=== PATIENT | male | born 1945 | race Caucasian/White ===

== ENCOUNTER → 2023-11-12 10:44 | Outpatient (REF) | payer MEDICARE, OTHER, SELFPAY ==
[2023-11-12 11:06] LABS: % Basophils 0.6 % (0-2); % Eosinophils 3.7 % (0-6); % Immature Granulocytes 0.2 % (0-0.5); % Monocytes 8.1 % (1.7-9.3); % Neutrophils 66.4 % (42.2-75.2); Absolute Eosinophils 0.2 10^3/uL (0-0.7); Absolute Lymphocytes 1.3 10^3/uL (1.2-3.4); Absolute Monocytes 0.5 10^3/uL (0.1-0.6); Absolute Neutrophils 4.2 10^3/uL (1.4-6.5); Hematocrit 44.4 % (39.0-52.0); Hemoglobin 15.3 g/dL (13.0-18.0); Mean Corp Hgb Conc. 34.5 g/dL (33.0-37.0); Mean Corpuscular Hgb 32.3 pg (27.0-31.0); Mean Corpuscular Volume 93.7 fL (80.0-94.0); Mean Platelet Volume 11.7 fL (7.4-10.4); Nucleated Red Blood Cells % 0 % (-); Platelet Count 143 10^3/uL (130-400); Red Blood Cell Count 4.74 10^6/uL (4.70-6.10); Red Cell Dist. Width 14.7 % (11.5-14.5); White Blood Cell Count 6.3 10^3/uL (4.8-10.8)
[2023-11-12 11:32] LABS: ALT (SGPT) 26 U/L (0-50); AST (SGOT) 27 U/L (17-59); Albumin 3.5 g/dl (3.5-5.0); Alkaline Phosphatase 65 U/L (38-126); Blood Urea Nitrogen 17 mg/dl (9-20); Calcium 9.1 mg/dl (8.4-10.2); Carbon Dioxide 27 mmol/L (22-30); Chloride 103 mmol/L (98-107); Glucose 115 mg/dl (70-99); HDL Cholesterol 49 mg/dl; LDL Cholesterol, Calculated 81 mg/dl; Sodium 139 mmol/L (135-145); Total Bilirubin 1.1 mg/dl (0.2-1.3); Total Cholesterol 146 mg/dl (50-199); Total Protein 6.4 g/dl (6.3-8.2); Triglyceride 81 mg/dl (10-149); Very Low Density Lipoprotein 16 mg/dl (0-30); eGFR > 60.00
== END ==
LOC: REG 10:44
PROVIDERS: ATTENDING PHYSICIAN Internal Medicine
DX: I49.3 Ventricular premature depolarization (principal); I25.10 Atherosclerotic heart disease of native coronary artery without angina pectoris; E78.00 Pure hypercholesterolemia, unspecified
CPT/HCPCS: 36415; 80053; 80061; 85025

== ENCOUNTER → 2023-11-18 06:55 | Day surgery (SDC) | payer MEDICARE, OTHER, SELFPAY | LOC: CATH 06:55 | PROVIDERS: ATTENDING PHYSICIAN Internal Medicine Cardiovascular Disease; FAMILY PHYSICIAN Internal Medicine | DX: I48.91 Unspecified atrial fibrillation (principal); Z79.01 Long term (current) use of anticoagulants; I25.10 Atherosclerotic heart disease of native coronary artery without angina pectoris; Z95.5 Presence of coronary angioplasty implant and graft; K21.9 Gastro-esophageal reflux disease without esophagitis; Z95.0 Presence of cardiac pacemaker; Z79.82 Long term (current) use of aspirin | CPT/HCPCS: 92960; 93005 ==

== ENCOUNTER → 2023-11-20 15:37 | Outpatient (REF) | payer MEDICARE, OTHER, SELFPAY ==
--- NOTE | 2023-11-18 11:16 | ITS.CL.CARDI ---
Analytical Strategist - Cardioversion
Cardioversion
Procedure Report:
CARDIOVERSION REPORT
DATE: November 18, 2023
Primary Care Provider: Dr. Donnie Jj
Primary business services officer: Dr. Ilya Lewis
INDICATION: Atrial fibrillation
ANTICOAGULATION: Eliquis, uninterrupted
ANESTHESIA:
Deep sedation was administered (Propofol) and monitored via the Anesthesia department.
CARDIOVERSION:
Once sedation was determined to be adequate, a biphasic shock was delivered with external pads placed in an A-P position.
Attempt # 1: 200 J Results: atrial fibrillation remains
Attempt # 2: 360 J Results: atrial fibrillation remains
Attempt # 3: 360 J + External pressure on anterior pad Results: Atrial paced
COMPLICATIONS: None
CONCLUSION: Successful cardioversion of atrial fibrillation to sinus rhythm.
RECOMMENDATION:
Maintain oral anticoagulation
After cardioversion, acutely there is slight increase in atrial and ventricular capture thresholds so I reprogrammed the device to higher atrial and ventricular outputs to ensure capture. This can be reevaluated in the office setting.
He is scheduled for an echocardiogram in approximately 1 week and thereafter an office visit with me.
Copy to:
Dr. Donnie Jj
Dr. Ilya Lewis
== END ==
LOC: DHCBS MAIN 15:37
PROVIDERS: ATTENDING PHYSICIAN Internal Medicine Cardiovascular Disease; FAMILY PHYSICIAN Internal Medicine
DX: I25.10 Atherosclerotic heart disease of native coronary artery without angina pectoris (principal)
CPT/HCPCS: 93306

== ENCOUNTER 2024-01-11 05:51 | Day surgery (SDC) | payer MEDICARE, OTHER, SELFPAY ==
[2024-01-01 12:40] VITALS: BMI 30.8
[2024-01-11] VITALS (9 sets, daily range): BP systolic 99–135; BP diastolic 65–85; BMI 29.8
[2024-01-11 08:55] LABS: ACT-LR - POC 342 Seconds (116-155)
[2024-01-11 09:16] LABS: ACT-LR - POC 366 Seconds (116-155)
[2024-01-11 09:36] LABS: ACT-LR - POC 281 Seconds (116-155)
--- NOTE | 2024-01-11 11:03 | ITS.CL.ABL ---
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
Ablation
Procedure Report:
ELECTROPHYSIOLOGIC STUDY AND POSSIBLE ABLATION
DATE: 01/11/24
Primary Care Provider: Dr Donnie Jj
Primary patient support representative: Dr Ilya Lewis
INDICATION:
Symptomatic Atrial Fibrillation.
Persistent atrial fibrillation, atrial fibrillation persistent since August 2023. He was briefly in sinus rhythm for approximately 3 to 4 days after his cardioversion in early November 2023. In sinus rhythm for the several days he noted marked
improvement in activity tolerance.
Cardiac imaging has noted markedly enlarged left atrium.
HISTORY: See H and P.
Symptomatic AF, poorly controlled with attempted medical therapy
HAS-BLED: 2
Age
Antiplatelet Therapy
CHADSVASc: 3
Age
Vascular Dz: prior [place]
PRESENTING RHYTHM: AF
HISTORY: See H and P.
Symptomatic AF, poorly controlled with attempted medical therapy.
ANTICOAGULATION: Apixaban
'TIME-OUT': called and confirmed.
SEDATION/ANESTHESIA: provided via the anesthesia department using general anesthesia.
PROCEDURE:
Ultrasound Guidance performed by [place] was utilized for femoral venous Vascular Access b/l.
A decapolar CS catheter was placed within the CS for mapping and pacing.
The intracardiac ultrasound catheter was positioned in the RA for continuous intracardiac ultrasound imaging.
Heparin bolus and infusion to target ACT at 300 -350 seconds was administered. Transseptal puncture was performed. This entailed advancing a sheath with dilator into the superior vena cava and withdrawing both (monitoring intracardiac ultrasound,
fluoroscopy and tip pressure) with the tip oriented toward the atrial septum. The fossa ovalis was engaged (indicated by sudden displacement of the sheath tip as well as tenting of the fossa seen on intracardiac ultrasound). Left atrial access
required a pass with the Brockenbrough needle extended. Left atrial catheter position was confirmed by pressure monitoring as well as fluoroscopy. The sheath was advanced over the dilator and positioned in the left atrium.
The multipolar mapping catheter was initially positioned through the transseptal sheath for high density mapping.
Geometry and voltage mapping was performed using the Medtronic Pulse Select PFA catheter and Navex 3-D electroanatomical mapping.
A 3-D map was created using Navex . A 3-D reconstructed CT image was compared to the 3-D Navex map to assist in anatomic evaluation, mapping and ablation.
The medtronic Pulse Select PFA catheter and system was used for cardiac ablation. Catheter positioning was guided and confirmed using both I.C.E. and fluoroscopy.
PV isolation approach was used to electrically isolate each PV ostia. Additional ablation lesion set was required to isolate the enlarged and highly fractionated posterior wall of the left atrium.
Once ablation was completed, cardioversion restored sinus rhythm.
Remapping demonstrated isolation of the pulmonary veins as well as the posterior wall with both entrance and exit block from the pulmonary veins and the posterior wall of the left atrium.
Programmed electrical stimulation was performed and failed to induce any sustained arrhythmias.
I.C.E. :
Pre-Ablation Post-Ablation
LVEF: 45 % 45 %
WMA: none none
Pericardial effusion: none none
COMPLICATIONS:
None
The Medtronic dual-chamber permanent pacemaker was interrogated at the beginning and then again at the end of today's procedure and there is no change in function of the ICD and lead system. Fluoroscopic imaging shows no change in the fluoroscopic
appearance of the leads and generator.
SUMMARY:
- Mapping and ablation to isolate the PVs
- Additional AF ablation set after PVI.
- 3-D Electroanatomical Mapping
- Intracardiac Ultrasound
Interrogation of the dual-chamber permanent pacemaker finds normal function of the pacemaker and lead system battery longevity is estimated at approximately 1 year.
Post ablation, I discussed today's findings and results with the patient's .
RECOMMENDATIONS:
- Observe in monitored bed.
- Maintain oral anticoagulation.
- Office visit with me in 3 months.
- Continue cardiovascular care with Dr Ilya Lewis
Copy to:
Dr Donnie Jj
Dr Ilya Lewis
--- NOTE | 2024-01-11 14:08 | W.PN.UPDATE ---
Update Note
Progress Note Update
Pt seen post PFA. Bilat groin sites with vascade closure, no ht/bleeding, non tender. OOB to chair, urinating without difficulty. 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 Resume eliquis today and continue other meds as before. Followup with Dr. Johnson
as scheduled. Home today if tele/groin sites remain stable.
== END 2024-01-11 13:10 | disposition home or self-care (01) ==
LOC: CATH 05:51
PROVIDERS: ATTENDING PHYSICIAN Internal Medicine Cardiovascular Disease; FAMILY PHYSICIAN Internal Medicine
DX: I48.19 Other persistent atrial fibrillation (principal); R53.83 Other fatigue; R06.09 Other forms of dyspnea; E78.00 Pure hypercholesterolemia, unspecified; I25.119 Atherosclerotic heart disease of native coronary artery with unspecified angina pectoris; I25.2 Old myocardial infarction; Z95.5 Presence of coronary angioplasty implant and graft; I42.9 Cardiomyopathy, unspecified; I47.20 Ventricular tachycardia, unspecified; Z95.0 Presence of cardiac pacemaker; I08.1 Rheumatic disorders of both mitral and tricuspid valves; K21.9 Gastro-esophageal reflux disease without esophagitis; E66.9 Obesity, unspecified; Z68.30 Body mass index [BMI] 30.0-30.9, adult; Z79.82 Long term (current) use of aspirin; Z79.01 Long term (current) use of anticoagulants
CPT/HCPCS: 76937; 85347; 86900; 86901; 93005; 93656; 93657; C1732; C1759; C1760; C1769; C1892; C1894

== ENCOUNTER → 2024-04-15 10:44 | Outpatient (REF) | payer MEDICARE, OTHER, SELFPAY | LOC: HWRAD 10:44 | PROVIDERS: ATTENDING PHYSICIAN Internal Medicine Critical Care Medicine; FAMILY PHYSICIAN Internal Medicine | DX: R91.8 Other nonspecific abnormal finding of lung field (principal) | CPT/HCPCS: 71250 ==

== ENCOUNTER → 2024-07-25 08:28 | Outpatient (REF) | payer MEDICARE, OTHER, SELFPAY ==
[2024-07-25 09:26] LABS: % Basophils 0.9 % (0-2); % Eosinophils 5.8 % (0-6); % Immature Granulocytes 0.4 % (0-0.5); % Lymphocytes 25.6 % (20.5-51.1); % Monocytes 9.4 % (1.7-9.3); % Neutrophils 57.9 % (42.2-75.2); Absolute Basophils 0.1 10^3/uL (0-0.2); Absolute Eosinophils 0.3 10^3/uL (0-0.7); Absolute Lymphocytes 1.4 10^3/uL (1.2-3.4); Absolute Monocytes 0.5 10^3/uL (0.1-0.6); Absolute Neutrophils 3.1 10^3/uL (1.4-6.5); Hematocrit 43.5 % (39.0-52.0); Hemoglobin 14.6 g/dL (13.0-18.0); Mean Corp Hgb Conc. 33.6 g/dL (33.0-37.0); Mean Corpuscular Hgb 31.5 pg (27.0-31.0); Mean Corpuscular Volume 93.8 fL (80.0-94.0); Mean Platelet Volume 12.5 fL (7.4-10.4); Nucleated Red Blood Cells % 0 % (-); Platelet Count 110 10^3/uL (130-400); Red Blood Cell Count 4.64 10^6/uL (4.70-6.10); Red Cell Dist. Width 13.3 % (11.5-14.5); White Blood Cell Count 5.3 10^3/uL (4.8-10.8)
[2024-07-25 10:09] LABS: ALT (SGPT) 25 U/L (0-50); AST (SGOT) 31 U/L (17-59); Alkaline Phosphatase 54 U/L (38-126); Blood Urea Nitrogen 16 mg/dl (9-20); Calcium 9.1 mg/dl (8.4-10.2); Carbon Dioxide 27 mmol/L (22-30); Chloride 104 mmol/L (98-107); Glucose 107 mg/dl (70-99); HDL Cholesterol 57 mg/dl; LDL Cholesterol, Calculated 54 mg/dl; Potassium 4.2 mmol/L (3.5-5.1); Sodium 141 mmol/L (135-145); Total Cholesterol 128 mg/dl (50-199); Total Protein 6.7 g/dl (6.3-8.2); Triglyceride 85 mg/dl (10-149); Very Low Density Lipoprotein 17 mg/dl (0-30); eGFR > 60.00
[2024-07-25 10:32] LABS: PSA, Total - Screen 0.74 ng/ml (0.0-4.0); TSH Reflex To Free T4 3.73 uIU/ml (0.47-4.68)
[2024-07-25 11:02] LABS: Glycohemoglobin (HgbA1c) 5.6 % (4.0-5.6)
== END ==
LOC: REG 08:28
PROVIDERS: ATTENDING PHYSICIAN Nurse Practitioner Family; FAMILY PHYSICIAN Internal Medicine; REFERRING PHYSICIAN Internal Medicine Cardiovascular Disease
DX: I25.10 Atherosclerotic heart disease of native coronary artery without angina pectoris (principal); E78.00 Pure hypercholesterolemia, unspecified; I48.91 Unspecified atrial fibrillation; Z12.5 Encounter for screening for malignant neoplasm of prostate; Z79.899 Other long term (current) drug therapy
CPT/HCPCS: 36415; 80053; 80061; 83036; 84443; 85025; G0103

== ENCOUNTER → 2024-08-01 10:35 | Outpatient (REF) | payer MEDICARE, OTHER, SELFPAY ==
[2024-08-01 11:42] LABS: % Basophils 0.8 % (0-2); % Eosinophils 7.7 % (0-6); % Immature Granulocytes 0.2 % (0-0.5); % Lymphocytes 20.2 % (20.5-51.1); % Monocytes 10.6 % (1.7-9.3); % Neutrophils 60.5 % (42.2-75.2); Absolute Eosinophils 0.4 10^3/uL (0-0.7); Absolute Monocytes 0.5 10^3/uL (0.1-0.6); Absolute Neutrophils 2.9 10^3/uL (1.4-6.5); Hematocrit 45.6 % (39.0-52.0); Hemoglobin 14.9 g/dL (13.0-18.0); Mean Corp Hgb Conc. 32.7 g/dL (33.0-37.0); Mean Corpuscular Hgb 31.4 pg (27.0-31.0); Mean Platelet Volume 12.5 fL (7.4-10.4); Nucleated Red Blood Cells % 0 % (-); Platelet Count 144 10^3/uL (130-400); Red Blood Cell Count 4.75 10^6/uL (4.70-6.10); Red Cell Dist. Width 13.4 % (11.5-14.5); White Blood Cell Count 4.8 10^3/uL (4.8-10.8)
== END ==
LOC: REG 10:35
PROVIDERS: ATTENDING PHYSICIAN Internal Medicine Hematology & Oncology; FAMILY PHYSICIAN Internal Medicine
DX: D69.6 Thrombocytopenia, unspecified (principal); Z79.01 Long term (current) use of anticoagulants
CPT/HCPCS: 36415; 85025

== ENCOUNTER → 2024-12-13 13:42 | Outpatient (REF) | payer MEDICARE, OTHER, SELFPAY | LOC: MRI 13:42 | PROVIDERS: ATTENDING PHYSICIAN Student in an Organized Health Care Education/Training Program; FAMILY PHYSICIAN Internal Medicine | DX: S86.012A Strain of left Achilles tendon, initial encounter (principal) | CPT/HCPCS: 73721 ==

== ENCOUNTER 2024-12-21 08:55 | Inpatient (IN) | payer MEDICARE, OTHER, SELFPAY ==
[2024-12-19] VITALS (19 sets, daily range): BP systolic 105–149; BP diastolic 54–78; BMI 30.9
[2024-12-19 06:38] LABS: Hemoglobin 14.9 g/dL (13.0-18.0); Mean Corp Hgb Conc. 33.1 g/dL (33.0-37.0); Mean Corpuscular Hgb 32.1 pg (27.0-31.0); Mean Platelet Volume 12.6 fL (7.4-10.4); Platelet Count 123 10^3/uL (130-400); Red Blood Cell Count 4.64 10^6/uL (4.70-6.10); Red Cell Dist. Width 14.5 % (11.5-14.5); White Blood Cell Count 6.1 10^3/uL (4.8-10.8)
[2024-12-19] MEDS: CELEBREX 200 MG PO (06:54)
[2024-12-19] MEDS: NORMOSOL-R/PLASMALYTE-A 1000 IV (06:54)
[2024-12-19] MEDS: TYLENOL 1000 MG PO (06:54)
[2024-12-19 06:56] LABS: ALT (SGPT) 21 U/L (0-50); AST (SGOT) 25 U/L (17-59); Albumin 3.8 g/dl (3.5-5.0); Alkaline Phosphatase 73 U/L (38-126); Blood Urea Nitrogen 17 mg/dl (9-20); Calcium 9.3 mg/dl (8.4-10.2); Carbon Dioxide 26 mmol/L (22-30); Chloride 106 mmol/L (98-107); Estimated Creatinine Clearance 93 ml/min; Glucose 111 mg/dl (70-99); Potassium 4.3 mmol/L (3.5-5.1); Sodium 140 mmol/L (135-145); Total Bilirubin 1.1 mg/dl (0.2-1.3); Total Protein 6.8 g/dl (6.3-8.2); eGFR > 60.00
--- NOTE | 2024-12-19 08:34 | W.PN.SURGUPD ---
Surgical Update
Surgical Update
79 yo M s/p left Achilles tendon repair. Post-op admission for pain control and ambulatory dysfunctional
-Splint to remain C/D/I
-Multimodal analgesia
-Ancef while admitted
-Can resume eliquis POD#1
-NWB to LLE, PT/OT to stard POD#0 or POD#1
-Follow up at [facility] in 2 weeks
--- NOTE | 2024-12-19 10:38 | HPS.HSE ---
Family Physician
-
Family Physician: NO INTERVIEW UNKNOWN
Chief Complaint
-
post-op care
History of Present Illness
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 He was assessed on 12/09 at podiatry/orthopedic office for 10 day onset of L heel pain, which was gradual and
worsening over time. Conservative pain control, stretching and shoe changes provided very little relief. Decision was made to proceed with tendon repair today. Patient seen post-op, no immediate complications. Patient only reports L heel pain.
Denies CP, SOB, Abd pain or other complaints. Confirms distant history of morphine allergy (morphine infusion related to prior R Achilles surgery greater than 20 years ago).
Medical History
Past Medical History
Past Medical History: Reports Other (hx of PAF, mild MR, GERD, hx of CAD (hx of PCI), HLD, OA, Arthritis)
Past Surgical History: Reports Cardiac (pacemaker 2019, angioplasty 2015), Cholecystectomy, Orthopedic and Tonsilectomy
Social History
Tobacco: Non-smoker
Alcohol: None
Drug: None
Personal:
Living: With Family
Employment: Retired
Family History
Family History: Not pertinent
Allergies / Home Medications
Allergies reflects when Allergies were last updated in [facility].
Home Medications with original date entered in [facility]
Allergy/Medication List:
Allergies
Allergy/AdvReac Type Severity Reaction Status Date / Time
morphine AdvReac chest Verified 12/19/24 06:20
pain,
muscle pain
Home Medications
lisinopril 5 mg tablet 5 mg PO HS 01/12/18
omeprazole 20 mg capsule,delayed release 20 mg PO DAILY 01/12/18
carvedilol 3.125 mg tablet 3.125 mg PO BID 30 days ##60 01/17/18
apixaban 5 mg tablet (Eliquis) 5 mg PO BID ##0 04/01/21
aspirin 81 mg tablet,delayed release (Adult Aspirin Regimen) 81 mg PO HS 04/01/21
ezetimibe 10 mg tablet (Zetia) 10 mg PO HS 11/18/23
rosuvastatin 10 mg tablet (Crestor) 10 mg PO MOWEFR 11/18/23
Review of Systems
-
A 12 point ROS was completed and negative except as noted: Yes
Physical Exam
Vital Signs
Vital Signs
Temp Pulse Resp BP Pulse Ox
97.1 F 73 21 117/72 98
12/19/24 09:40 12/19/24 10:16 12/19/24 10:16 12/19/24 10:16 12/19/24 10:16
Physical Exam
General: Well Developed, Well Nourished and No Apparent Distress
HEENT: NormoCephalic and Anicteric
Respiratory: Clear; No Wheezes or Rales
Cardiac: S1/S2 and Regular Rhythm
GI: Soft, Non Tender and Non Distended
Musculoskeletal: Edema, Left Lower Extremity (post-op edema, splint in place) and Other
Neuro: AO x 3
Hematologic/Lymphatic: No Lymphadenopathy
Psych: Calm
Laboratory Results
-
12/19/24 06:28
12/19/24 06:28
Laboratory Results
Total Bilirubin 1.1 mg/dl (0.2-1.3) 12/19/24 06:28
AST 25 U/L (17-59) 12/19/24 06:28
ALT 21 U/L (0-50) 12/19/24 06:28
Alkaline Phosphatase 73 U/L (38-126) 12/19/24 06:28
Data Reviewed
-
Lab Data: Labs Reviewed by me
Impression/Plan
-
Assessment:
L Achilles tendon rupture
- s/p tendon repair 12/19/24 (Podiatry. Dr. Scales)
- Ancef x 24 hours
- pain control
- NWB to LLE, PT/OT to start this afternoon
- d/w Dr. Scales - ok for SC heparin. Resume Eliquis in AM
- follow Podiatry recs
hx of Parox A Fib
Hx of CAD s/p PCI
Mild MR
- hold Eliquis; resume in AM
- resume ASA tomorrow
- continue Coreg/Lisinopril
GERD
- PPI
HLD
- statin/Zetia
OA
Arthritis
- pain control
- PT/OT
DVT ppx: SC Heparin x 1 tonight, then Eliquis tomorrow
Code: Full
--- NOTE | 2024-12-19 11:49 | PTCARENOTE ---
Pt admitted to [facility] s/p achilles tendon repair surgery. AV paced on monitor, VSS, pt denies pain. Assessment as documented, pt oriented to room, call pop within reach.
[2024-12-19] MEDS: TYLENOL 650 MG PO (20:18)
[2024-12-19] MEDS: COREG 3.125 MG PO (20:19)
[2024-12-19] MEDS: ZETIA 10 MG PO (22:58)
[2024-12-19] MEDS: ZESTRIL 5 MG PO (22:58)
[2024-12-20] VITALS (8 sets, daily range): BP systolic 98–123; BP diastolic 57–74; PULSE 76
[2024-12-20 06:44] LABS: Hematocrit 40.9 % (39.0-52.0); Hemoglobin 13.7 g/dL (13.0-18.0); Mean Corp Hgb Conc. 33.5 g/dL (33.0-37.0); Mean Corpuscular Hgb 32.1 pg (27.0-31.0); Mean Corpuscular Volume 95.8 fL (80.0-94.0); Mean Platelet Volume 12.6 fL (7.4-10.4); Platelet Count 122 10^3/uL (130-400); Red Blood Cell Count 4.27 10^6/uL (4.70-6.10); Red Cell Dist. Width 14.4 % (11.5-14.5); White Blood Cell Count 8.6 10^3/uL (4.8-10.8)
--- NOTE | 2024-12-20 07:20 | W.PN.SURGUPD ---
Surgical Update
Surgical Update
79 yo M s/p left Achilles tendon repair 12/19/2024. Recovering well
-Patient seen and evaluated at bedside. Pain is well controlled
-Splint to remain C/D/I
-NWB to LLE
-Can be discharged following PT evaluation today
-Follow up at [facility] in 2 weeks
[2024-12-20 07:35] LABS: Blood Urea Nitrogen 13 mg/dl (9-20); Calcium 9.1 mg/dl (8.4-10.2); Carbon Dioxide 26 mmol/L (22-30); Chloride 105 mmol/L (98-107); Estimated Creatinine Clearance 106 ml/min; Glucose 117 mg/dl (70-99); Sodium 137 mmol/L (135-145); eGFR > 60.00
[2024-12-20] MEDS: COREG PO ×2 (08:30→20:03)
[2024-12-20] MEDS: PROTONIX 40 MG PO (08:59)
[2024-12-20] MEDS: ELIQUIS 5 MG PO ×2 (08:59→20:04)
[2024-12-20] MEDS: TYLENOL 650 MG PO ×2 (09:00→20:10)
--- NOTE | 2024-12-20 11:09 | CM ---
Initial assessment completed
Pt lives with his in a 2 story home; 2 steps to enter, 15 steps to bedroom, + powder room
Independent, retired, drives
DME - rolling walker, raised toilet seat, toilet rails, single point cane
SNF/HH - denies past hx
PCP - Donnie Jj
Pharm - [facility]
Seen by PT/OT - recs acute rehab. Pt requesting [facility]. Will send referral in [facility].
Spoke with Hadley at [facility] - will review
Plan - anticipate acute rehab when medically stable
--- NOTE | 2024-12-20 11:36 | W.PN.HOSP.TC ---
Today's Communication/Plan
-
Consult PMR; placement pending
Assessment / Plan
Assessment / Plan
Assessment:
L Achilles tendon rupture
- s/p tendon repair 12/19/24 (Podiatry. Dr. Scales)
- pain control
- NWB to LLE
- PT/OT - Acute rehab recommended
- follow Podiatry recs
Orthostasis, transient on 12/20 with PT
- will monitor
hx of Parox A Fib
Hx of CAD s/p PCI
Mild MR
- continue Eliquis
- continue ASA
- continue Coreg/Lisinopril
GERD
- PPI
HLD
- statin/Zetia
OA
Arthritis
- pain control
- PT/OT
DVT ppx: Eliquis
Code: Full
Anticipated Discharge: 24 - 48 hours
Subjective/Interval History
-
Date of Service: December 20, 2024
transiently orthostatic this AM, improved after resting
reports mild pain; only needed Tylenol prn
No other complaints
Objective Data
-
Labs:
Laboratory Results
12/20/24
06:16
WBC 8.6
Hgb 13.7
Hct 40.9
Plt Count 122 L
Sodium 137
Potassium 4.0
Chloride 105
Carbon Dioxide 26
BUN 13
Creatinine 0.7
Glucose 117 H
Calcium 9.1
Vital Signs:
Vital Signs
Temp Pulse Resp BP Pulse Ox
97.2 F 73 16 114/69 97
12/20/24 11:23 12/20/24 11:23 12/20/24 11:23 12/20/24 11:23 12/20/24 11:23
I&O
12/19/24 12/20/24 12/21/24
06:59 06:59 06:59
Intake Total 2490 / 2490
Output Total 800 / 800
Balance 1690 / 169
Physical Exam
-
General: No Apparent Distress
HEENT: Normocephalic and Atraumatic
Respiratory: Negative Wheezes
Cardiac: Regular Rhythm and S1/S2
GI: Soft and Nontender
Genito-urinary: No Costovertebral Tender
Musculoskeletal: Edema, Left Upper Extrem (post-op edema, splint in place)
Neuro: AO x 3
Hematologic / Lymphatic: No Lymphadenopathy
Psych: Calm
Data Reviewed
-
Total Time Spent with Patient (in minutes): 41
Labs: Labs Reviewed by me
--- NOTE | 2024-12-20 16:21 | W.PN.UPDATE ---
Update Note
Progress Note Update
I reviewed his telemetry, his HR has never been < 60 bpm, the base rate of his pacer. There has been no asystole and there has been no non-capture beats.
He likely has been somewhat orthostatic and I agree with volume repletion as well as holding Coreg temporarily. May also need to hold lisinopril temporarily.
As BP improves would then add back coreg and lisinopril (if held)
I reviewed all this with Dr Prado.
[2024-12-20] MEDS: ZESTRIL 5 MG PO (22:15)
[2024-12-20] MEDS: ASPIR LOW (ENTERIC COATED) 81 MG PO (22:15)
[2024-12-20] MEDS: ZETIA 10 MG PO (22:15)
[2024-12-20] MEDS: MELATONIN 5 MG PO (22:16)
[2024-12-21] VITALS (7 sets, daily range): BP systolic 105–137; BP diastolic 65–83
[2024-12-21] MEDS: COREG PO (08:40)
--- NOTE | 2024-12-21 09:00 | CON.MD ---
Documented by User: Cathleen Monterroso PA-C 12/21/24 13:03
Consultation - Medical
-
Referring Provider:�Kanchan Corbett
Chief Complaint:�Ambulatory dysfunction, left Achilles tendon rupture status post repair
�
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
evaluation of gradual worsening left heel pain of 10 days after attempting to push his disabled car. He felt a tingling in his heel followed by a snap. After obtaining very little relief with conservative pain control, stretching and shoe changes
the decision was made to proceed with tendon repair. He had a similar injury to his right heel 20 years ago and had undergone achilles tendon repair. At that time, he wore a boot and was able to return to work without outpatient therapy. On
12/19/2024, he underwent left achilles tendon repair .Patient seen post-op, no immediate complications. Patient only reports L heel pain. Denies CP, SOB, Abd pain or other complaints.
Past Medical History:�PAF, mild MR, GERD, history of CAD, status post PCI, HLD, OA, pacemaker 2019,
Procedure History:�Right Achilles repair 20 years ago, angioplasty 2015
Family History:�not pertinent
�
Social History:�
Functional Level Premorbidly:�Independent with all activities�
Functional Level Currently:�Bed mobility�supervision, transfers�min assist, uses knee scooter to ambulate due to no weightbearing, eating, grooming�set up, toileting�mod assist, upper extremity dressing-set up, lower extremity self-care�min assist,
�
Tobacco:�Denies�
Alcohol:�Denies�
Drug use:�Denies�
�
Lives with:�Spouse
24-hour assistance available:�
Number of floors:�Multilevel
# steps to enter:�2
# steps to second floor: 18 steps to bedroom
Potential First floor set up:�
Driving:�Yes
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
�
�
Allergies:�
Allergy/AdvReac Type Severity Reaction Status Date / Time
morphine AdvReac chest Verified 12/19/24 06:20
pain,
muscle pain
�
Review of Systems:�
Constitutional: (x) Normal _
Eye: (x) Normal _
Ear/Nose/Throat: (x) Normal _
Respiratory: (x) Normal _
Cardiovascular: (x) Normal _
Gastrointestinal: (x) Normal _
Genitourinary: (x) Normal _
Musculoskeletal: (x) abNormal _left heel
Integumentary: (x) Normal _
Neurologic: (x) Normal _
Psychiatric: (x) Normal _
Endocrine: (x) Normal _
Hematologic/Lymphatic: (x) Normal _
Allergic/Immunologic: (x) Normal _
�
Medications:�
Active Current Visit Medication List
Category Date Time Status
Acetaminophen [Tylenol] Med 12/19/24 10:21 Active
650 mg PO Q4HPRN PRN
Apixaban [Eliquis] Med 12/20/24 08:15 Active
5 mg PO BID
Aspirin Low Dose EC [Aspir Low (Enteric Coated)] Med 12/20/24 22:00 Active
81 mg PO HS
Bisacodyl [Dulcolax] Med 12/19/24 10:21 Active
10 mg RECTAL [id number] PRN
Carvedilol [Coreg] Med 12/19/24 20:00 Hold
3.125 mg PO BID
Docusate W/Senna [Senokot-S] Med 12/19/24 10:21 Active
1 tablet PO BIDPRN PRN
Ezetimibe [Zetia] Med 12/19/24 22:00 Active
10 mg PO HS
Lisinopril [Zestril] Med 12/19/24 22:00 Hold
5 mg PO HS
Ondansetron Injectable [Zofran] Med 12/19/24 10:21 Active
4 mg IV Q6HPRN PRN
Oxycodone [Roxicodone] Med 12/19/24 10:21 Active
5 mg PO Q4HPRN PRN
Pantoprazole [Protonix] Med 12/20/24 08:00 Active
40 mg PO DAILY
Polyethylene Glycol Powder [Miralax] Med 12/19/24 10:21 Active
17 grams PO DAILYPRN PRN
�
Vitals:�
Temp Pulse Resp BP Pulse Ox
97.3 F 71 16 124/80 94
12/21/24 07:25 12/21/24 07:25 12/21/24 07:25 12/21/24 07:25 12/21/24 07:25
Height 6 ft 1 in
Actual Weight 106.141 kg
Body Mass Index (BMI) 30.9
�
Physical Exam:�
General Appearance/Observation: Well-developed, well-nourished individual in no apparent distress.�
Pain/Comfort Assessment: left heel-discomfort
Mood/Affect: Appropriate, pleasant
�
Integumentary/Operative Site:�Left leg/foot with splint an mercedes wrap
�� Pressure Ulcer Evaluation: absent over heels.�
��
�� Other Type of Wound: absent�
��
�
Eyes: Conjunctiva/Lids: normal���� Pupils: pupils equal round
Ears/Nose/Throat: oral mucosa moist,� throat clear.������������ Lips/Teeth/Gums: normal�
Neck: No muscle spasm or tenderness�
Cardiovascular: Heart: regular, no murmur�
Pulses: dorsalis pedis 2+ bilaterally�
Respiratory: Respiratory Effort/Chest Expansion: normal������� Auscultation: Clear to auscultation bilaterally�
Gastrointestinal: abdomen not tender, no distension, normal abdominal bowel sounds
Genitourinary: No Dye�
Extremities:�Edema: None�Cyanosis: None�Trophic�changes: some atrophy left distal leg due to prior surgery
�
Neurology Exam:
Orientation: Alert, Oriented to self, Time, Place�
Memory: Intact for immediate medical concerns
Comprehension: Intact
Two step command: Intact
Cranial Nerves:
�� CNII:�Pupillary light reflex: Intact����Visual Field: NT
�� CN III, IV, : Extraocular muscles: Intact�
�� CN VII:�Facial movement: Symmetric
�� CN VIII:�Hearing: Normal
�� CN IX/X:�Speech & swallow: Normal,�Position of Uvula: Midline
�� CN XI:�Shoulder shrug: Symmetric
��
Sensory:
�� Light touch: Intact in bilateral upper and right lower extremities
��
�
Reflexes:
��
�� Patellar: 2+ bilaterally
�� Achilles: absent- right, deferred-left
�� Babinski: Down going -right, left NT
�� Liliana: Negative bilaterally�
Cerebellar: Dysmetria/Ataxia: NT
Musculoskeletal:
Motor: (Manual muscle scale 0-5)�
Muscle SA EF WE EE FF FA HF KE DF EHL PF
Right� 5 5 5 5 5 5 5 5 4
Left 5 5 5 5 5 5 NT *3+ NT
�* limited by mercedes wrap
Tone: Normal in all extremities�
Range of Motion: Passively within normal limits , LLE NT
�
Lab Results
Labs
WBC 8.6 10^3/uL (4.8-10.8) 12/20/24 06:16
RBC 4.27 10^6/uL (4.70-6.10) L 12/20/24 06:16
Hgb 13.7 g/dL (13.0-18.0) 12/20/24 06:16
Hct 40.9 % (39.0-52.0) 12/20/24 06:16
MCV 95.8 fL (80.0-94.0) H 12/20/24 06:16
MCH 32.1 pg (27.0-31.0) H 12/20/24 06:16
MCHC 33.5 g/dL (33.0-37.0) 12/20/24 06:16
RDW 14.4 % (11.5-14.5) 12/20/24 06:16
Plt Count 122 10^3/uL (130-400) L 12/20/24 06:16
MPV 12.6 fL (7.4-10.4) H 12/20/24 06:16
Sodium 137 mmol/L (135-145) 12/20/24 06:16
Potassium 4.0 mmol/L (3.5-5.1) 12/20/24 06:16
Chloride 105 mmol/L (98-107) 12/20/24 06:16
Carbon Dioxide 26 mmol/L (22-30) 12/20/24 06:16
BUN 13 mg/dl (9-20) 12/20/24 06:16
Creatinine 0.7 mg/dL (0.7-1.3) 12/20/24 06:16
Estimated Creat Clear 106 ml/min 12/20/24 06:16
eGFR > 60.00 12/20/24 06:16
Glucose 117 mg/dl (70-99) H 12/20/24 06:16
Calcium 9.1 mg/dl (8.4-10.2) 12/20/24 06:16
Total Bilirubin 1.1 mg/dl (0.2-1.3) 12/19/24 06:28
AST 25 U/L (17-59) 12/19/24 06:28
ALT 21 U/L (0-50) 12/19/24 06:28
Alkaline Phosphatase 73 U/L (38-126) 12/19/24 06:28
Total Protein 6.8 g/dl (6.3-8.2) 12/19/24 06:28
Albumin 3.8 g/dl (3.5-5.0) 12/19/24 06:28
�
Diagnostic Results:�as per HPI�
�EK12/20/2024
AV dual-paced rhythm WITH FREQUENT ventricular-paced complexes
ABNORMAL ECG
WHEN COMPARED WITH ECG OF 11-JAN-2024 10:54,
VENT. RATE HAS INCREASED BY 13 BPM
Confirmed by ADY LOCKE DO ([id number]) on 12/20/2024 7:58:39 AM
Assessment: 79-year-old male with left Achilles tendon rupture status postrepair 12/19/2024 with ambulatory dysfunction and ADL impairment.
�
Plan�
�PT/OT to increase independence with ADLs, improve balance, coordination, endurance, strength, mobility, community reintegration, decreased burden of care on others and family education.�
�L Achilles tendon rupture
- s/p tendon repair 12/19/24 (Podiatry. Dr. Scales)
- pain control
- NWB to LLE
- PT/OT -
- follow Podiatry recs
Orthostasis,-transient on 12/20 with PT. will monitor. Check orthostatic vitals. To consider knee high JACQUIE stockings if pressure still low
HTN: Carvedilol 3.125 twice daily, lisinopril 5 mg bedtime
HLD: Zetia and statin
Coronary artery disease�:s/p PCI, Mild MR. continue Eliquis, ASA, Coreg/Lisinopril
Paroxysmal atrial fibrillation:12/20- per cardio-HR has never been < 60 bpm. Volume repletion, �holding Coreg and may need to hold Lisinopril���������������������������������
Psych: Psychology consult.� Monitor mood, adjust medications as needed.�
Skin: monitor for pressure sores/rashes/lesions.�
Pain: acetaminophen as needed.�
Bowel: Colace and Senna, PRN bisacodyl.�
Bladder: Time void, PVRs, PRN straight cath.�
GI Prophylaxis: Pantoprazole�
DVT Prophylaxis: Mechanical and Eliquis 5 mg twice daily
Pulmonary: Incentive spirometry�
Safety: Continue to reinforce assistance with all transfers.�
Code Status:� Full code
Dispo�(date/plan/equipment needs): Home with family care.� Social history reviewed.�
�
Functional and Medical Goals:�Modified Independent with ADL�s, ambulation, transfers�
�
�
Discharge Destination:�Home with home care
�
Summary of recommendations: Patient Would benefit from home care PT/OT to help improve and facilitate ADL and ambulation according to his home design.
-
L Achilles tendon rupture
- s/p tendon repair 12/19/24 (Podiatry. Dr. Scales)
- pain control
- NWB to LLE
- PT/OT -
- follow Podiatry recs
DVT Prophylaxis: Mechanical and Eliquis 5 mg twice daily
Pain: acetaminophen as needed.�
Bowel: Colace and Senna, PRN bisacodyl.�
Bladder: Time void, PVRs, PRN straight cath.�
�
Thank you for allowing me to care for your patient. Please contact me with any questions or concerns.

Documented by User: Ilya Stephenson MD 12/21/24 22:32
Consultation - Medical
-
Referring Provider:�Kanchan Corbett
Chief Complaint:�Ambulatory dysfunction, left Achilles tendon rupture status post repair
�
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
evaluation of gradual worsening left heel pain of 10 days after attempting to push his disabled car. He felt a tingling in his heel followed by a snap. After obtaining very little relief with conservative pain control, stretching and shoe changes
the decision was made to proceed with tendon repair. He had a similar injury to his right heel 20 years ago and had undergone achilles tendon repair. At that time, he wore a boot and was able to return to work without outpatient therapy. On
12/19/2024, he underwent left achilles tendon repair .Patient seen post-op, no immediate complications. Patient only reports L heel pain. Denies CP, SOB, Abd pain or other complaints.
Past Medical History:�PAF, mild MR, GERD, history of CAD, status post PCI, HLD, OA, pacemaker
Procedure History:�Right Achilles repair 20 years ago, angioplasty 2015
Family History:�not pertinent
�
Social History:�
Functional Level Premorbidly:�Independent with all activities�
Functional Level Currently:�Bed mobility�supervision, transfers�min assist, uses knee scooter to ambulate due to no weightbearing, eating, grooming�set up, toileting�mod assist, upper extremity dressing-set up, lower extremity self-care�min assist
�
Tobacco:�Denies�
Alcohol:�Denies�
Drug use:�Denies�
�
Lives with:�Spouse
24-hour assistance available:� yes
Number of floors:�Multilevel
# steps to enter:� 3 steps each with a landing of
# steps to second floor: 18 steps to bedroom
Potential First floor set up:� possible
Driving:�Yes
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
�
�
Allergies:�
Allergy/AdvReac Type Severity Reaction Status Date / Time
morphine AdvReac chest Verified 12/19/24 06:20
pain,
muscle pain
�
Review of Systems:�
Constitutional: (x) Normal _
Eye: (x) Normal _
Ear/Nose/Throat: (x) Normal _
Respiratory: (x) Normal _
Cardiovascular: (x) Normal _
Gastrointestinal: (x) Normal _
Genitourinary: (x) Normal _
Musculoskeletal: (x) abNormal _left heel
Integumentary: (x) Normal _
Neurologic: (x) Normal _
Psychiatric: (x) Normal _
Endocrine: (x) Normal _
Hematologic/Lymphatic: (x) Normal _
Allergic/Immunologic: (x) Normal _
�
Medications:�
Active Current Visit Medication List
Category Date Time Status
Acetaminophen [Tylenol] Med 12/19/24 10:21 Active
650 mg PO Q4HPRN PRN
Apixaban [Eliquis] Med 12/20/24 08:15 Active
5 mg PO BID
Aspirin Low Dose EC [Aspir Low (Enteric Coated)] Med 12/20/24 22:00 Active
81 mg PO HS
Bisacodyl [Dulcolax] Med 12/19/24 10:21 Active
10 mg RECTAL [id number] PRN
Carvedilol [Coreg] Med 12/19/24 20:00 Hold
3.125 mg PO BID
Docusate W/Senna [Senokot-S] Med 12/19/24 10:21 Active
1 tablet PO BIDPRN PRN
Ezetimibe [Zetia] Med 12/19/24 22:00 Active
10 mg PO HS
Lisinopril [Zestril] Med 12/19/24 22:00 Hold
5 mg PO HS
Ondansetron Injectable [Zofran] Med 12/19/24 10:21 Active
4 mg IV Q6HPRN PRN
Oxycodone [Roxicodone] Med 12/19/24 10:21 Active
5 mg PO Q4HPRN PRN
Pantoprazole [Protonix] Med 12/20/24 08:00 Active
40 mg PO DAILY
Polyethylene Glycol Powder [Miralax] Med 12/19/24 10:21 Active
17 grams PO DAILYPRN PRN
�
Vitals:�
Temp Pulse Resp BP Pulse Ox
97.3 F 71 16 124/80 94
12/21/24 07:25 12/21/24 07:25 12/21/24 07:25 12/21/24 07:25 12/21/24 07:25
Height 6 ft 1 in
Actual Weight 106.141 kg
Body Mass Index (BMI) 30.9
�
Physical Exam:�
General Appearance/Observation: Well-developed, well-nourished male in no apparent distress.�
Pain/Comfort Assessment: left heel-discomfort
Mood/Affect: Appropriate, pleasant
�Integumentary/Operative Site:�Left leg/foot with splint an mercedes wrap
�
Eyes: Conjunctiva/Lids: normal���� Pupils: pupils equal round
Ears/Nose/T: oral mucosa moist,� throat clear.������������ Lips/Teeth/Gums: normal�
Cardiovascular: Heart: regular, no murmur�
Respiratory: Respiratory Effort/Chest Expansion: normal������� Auscultation: Clear to auscultation bilaterally�
Gastrointestinal: abdomen not tender, no distension, normal abdominal bowel sounds
Genitourinary: No Dye�
Extremities:�Edema: None�Cyanosis: None�Trophic�changes: some atrophy left calf
�
Neurology Exam:
Orientation: Alert, Oriented to self, Time, Place�
Memory: Intact for immediate medical concerns
Comprehension: Intact
Two step command: Intact
Cranial Nerves:
�� CN VII:�Facial movement: Symmetric
�� CN VIII:�Hearing: Normal
�� CN IX/X:�Speech & swallow: Normal,�Position of Uvula: Midline
�� CN XI:�Shoulder shrug: Symmetric
��
Sensory:
�� Light touch: Intact in bilateral lower extremities
Musculoskeletal:Motor: (Manual muscle scale 0-5)�
Muscle SA EF WE EE FF FA HF KE DF EHL PF
Right� 5 5 5 5 5 5 4
Left 5 5 5 5 NT *3+ NT
�* limited by mercedes wrap
Tone: Normal in all extremities�
Range of Motion: Passively within normal limits , LLE NT
�
Lab Results
Labs
WBC 8.6 10^3/uL (4.8-10.8) 12/20/24 06:16
RBC 4.27 10^6/uL (4.70-6.10) L 12/20/24 06:16
Hgb 13.7 g/dL (13.0-18.0) 12/20/24 06:16
Hct 40.9 % (39.0-52.0) 12/20/24 06:16
MCV 95.8 fL (80.0-94.0) H 12/20/24 06:16
MCH 32.1 pg (27.0-31.0) H 12/20/24 06:16
MCHC 33.5 g/dL (33.0-37.0) 12/20/24 06:16
RDW 14.4 % (11.5-14.5) 12/20/24 06:16
Plt Count 122 10^3/uL (130-400) L 12/20/24 06:16
MPV 12.6 fL (7.4-10.4) H 12/20/24 06:16
Sodium 137 mmol/L (135-145) 12/20/24 06:16
Potassium 4.0 mmol/L (3.5-5.1) 12/20/24 06:16
Chloride 105 mmol/L (98-107) 12/20/24 06:16
Carbon Dioxide 26 mmol/L (22-30) 12/20/24 06:16
BUN 13 mg/dl (9-20) 12/20/24 06:16
Creatinine 0.7 mg/dL (0.7-1.3) 12/20/24 06:16
Estimated Creat Clear 106 ml/min 12/20/24 06:16
eGFR > 60.00 12/20/24 06:16
Glucose 117 mg/dl (70-99) H 12/20/24 06:16
Calcium 9.1 mg/dl (8.4-10.2) 12/20/24 06:16
Total Bilirubin 1.1 mg/dl (0.2-1.3) 12/19/24 06:28
AST 25 U/L (17-59) 12/19/24 06:28
ALT 21 U/L (0-50) 12/19/24 06:28
Alkaline Phosphatase 73 U/L (38-126) 12/19/24 06:28
Total Protein 6.8 g/dl (6.3-8.2) 12/19/24 06:28
Albumin 3.8 g/dl (3.5-5.0) 12/19/24 06:28
�
Diagnostic Results:�as per HPI�
�EK12/20/2024
AV dual-paced rhythm WITH FREQUENT ventricular-paced complexes
ABNORMAL ECG
WHEN COMPARED WITH ECG OF 11-JAN-2024 10:54,
VENT. RATE HAS INCREASED BY 13 BPM
Confirmed by ADY LOCKE DO ([id number]) on 12/20/2024 7:58:39 AM
Assessment: 79-year-old male with left Achilles tendon rupture status postrepair 12/19/2024 with ambulatory dysfunction and ADL impairment.
�
Plan�
�PT/OT to increase independence with ADLs, improve balance, coordination, endurance, strength, mobility, community reintegration, decreased burden of care on others and family education.�
�L Achilles tendon rupture
- s/p tendon repair 12/19/24 (Podiatry. Dr. Scales)
- pain control
- NWB to LLE
- PT/OT -
- follow Podiatry recs
hypotension,-transient on 12/20 with PT. will monitor. Check orthostatic vitals.
HTN: Carvedilol 3.125 twice daily, lisinopril 5 mg bedtime
HLD: Zetia and statin
Coronary artery disease�:s/p PCI, Mild MR. continue Eliquis, ASA, Coreg/Lisinopril
Paroxysmal atrial fibrillation:3/11- per cardio-HR has never been < 60 bpm. Volume repletion, �holding Coreg and may need to hold Lisinopril���������������������������������
Psych: Psychology consult.� Monitor mood, adjust medications as needed.�
Skin: monitor for pressure sores/rashes/lesions.�
Pain: acetaminophen as needed.�
Bowel: Colace and Senna, PRN bisacodyl.�
Bladder: Time void, PVRs, PRN straight cath.�
GI Prophylaxis: Pantoprazole�
DVT Prophylaxis: Mechanical and Eliquis 5 mg twice daily
Pulmonary: Incentive spirometry�
Safety: Continue to reinforce assistance with all transfers.�
Code Status:� Full code
Dispo�(date/plan/equipment needs): Home with family care.� Social history reviewed.�
Functional and Medical Goals:�Modified Independent with ADL�s, ambulation, transfers� while maintaining nonweightbearing status
Discharge Destination:� SNF, has limited mobility with nonweightbearing left lower extremity. He is to navigate a few steps at home. Had recent episode of low blood pressure with therapy, needs continued monitoring with increasing activity.
�
Summary of recommendations: Patient would benefit from SNF to improve ADL and ambulation with nonweightbearing, navigate steps.
L Achilles tendon rupture
- s/p tendon repair 12/19/24 (Podiatry. Dr. Scales)
- pain control
- NWB to LLE
- PT/OT -
- follow Podiatry recs
DVT Prophylaxis: Mechanical and Eliquis 5 mg twice daily
Pain: acetaminophen as needed.�
Bowel: Colace and Senna, PRN bisacodyl.�
Bladder: Time void, PVRs, PRN straight cath.�
�
Thank you for allowing me to care for your patient. Please contact me with any questions or concerns.
[2024-12-21] MEDS: ELIQUIS 5 MG PO ×2 (09:11→19:58)
[2024-12-21] MEDS: PROTONIX 40 MG PO (09:11)
--- NOTE | 2024-12-21 12:18 | W.PN.HOSP.TC ---
Today's Communication/Plan
-
monitor BP/Orthostatics off BP meds
continue therapy
Assessment / Plan
Assessment / Plan
Assessment:
L Achilles tendon rupture
- s/p tendon repair 12/19/24 (Podiatry. Dr. Scales)
- pain control
- NWB to LLE
- follow Podiatry recs
- PT/OT - Acute rehab recommended but denied. SNF is next choice of patient. CM aware.
Orthostasis, transient on 12/20 with PT
- will monitor off BP meds. Patient agreeable
hx of Parox A Fib
Hx of CAD s/p PCI
Mild MR
- continue Eliquis
- continue ASA
- holding Coreg/Lisinopril
GERD
- PPI
HLD
- statin/Zetia
OA
Arthritis
- pain control
- PT/OT
DVT ppx: Eliquis
Code: Full
Dispo: to SNF when stable and bed available
Anticipated Discharge: > 48 hours
Subjective/Interval History
-
Date of Service: December 21, 2024
briefly orthostatic yesterday. BP meds now held
reports some neck discomfort due to position in bed
Objective Data
-
Vital Signs:
Vital Signs
Temp Pulse Resp BP Pulse Ox
97.5 F 77 16 105/65 95
12/21/24 11:11 12/21/24 11:11 12/21/24 11:11 12/21/24 11:11 12/21/24 11:11
I&O
12/20/24 12/21/24 12/22/24
06:59 06:59 06:59
Intake Total 2490 / 2490 1280 / 1280
Output Total 800 / 800 375 / 375
Balance 1690 / 1690 905 / 905
Physical Exam
-
General: No Apparent Distress
HEENT: Normocephalic and Atraumatic
Respiratory: Negative Wheezes
Cardiac: Regular Rhythm and S1/S2
GI: Soft and Nontender
Genito-urinary: No Costovertebral Tender
Musculoskeletal: Edema, Left Lower Extrem (post-op edema, splint in place)
Neuro: AO x 3
Psych: Calm
Data Reviewed
-
Total Time Spent with Patient (in minutes): 41
Labs: Labs Reviewed by me
[2024-12-21] MEDS: TYLENOL 650 MG PO ×2 (12:30→22:51)
--- NOTE | 2024-12-21 15:18 | CM ---
Pt denied by [facility]
Status changed to inpatient
Plan - anticipate SNF when medically ready
--- NOTE | 2024-12-21 17:26 | W.PN.UPDATE ---
Update Note
Progress Note Update
79 yo M s/p left Achilles tendon repair 12/19/2024. Recovering well
-Patient seen and evaluated at bedside. Pain is well controlled
-Splint to remain C/D/I
-NWB to LLE
-Can be discharged following PT evaluation today
-Follow up at [facility] in 2 weeks
[2024-12-21] MEDS: ZETIA 10 MG PO (22:51)
[2024-12-21] MEDS: MELATONIN 5 MG PO (22:51)
[2024-12-21] MEDS: ASPIR LOW (ENTERIC COATED) 81 MG PO (22:51)
[2024-12-22] VITALS (8 sets, daily range): BP systolic 110–141; BP diastolic 65–98; PULSE 50–55; O2SAT 98
[2024-12-22] MEDS: ELIQUIS 5 MG PO ×2 (08:11→21:08)
[2024-12-22] MEDS: PROTONIX 40 MG PO (08:11)
[2024-12-22] MEDS: MIRALAX 17 GRAMS PO (08:15)
[2024-12-22] MEDS: TYLENOL 650 MG PO ×2 (08:24→21:08)
--- NOTE | 2024-12-22 12:21 | W.PN.HOSP.TC ---
Today's Communication/Plan
-
dispo planning
monitor off BP meds
continue PT/OT
Assessment / Plan
Assessment / Plan
Assessment:
L Achilles tendon rupture
- s/p tendon repair 12/19/24 (Podiatry. Dr. Scales)
- pain control
- NWB to LLE
- follow Podiatry recs
- PT/OT - Acute rehab recommended but denied. SNF being planned. CM aware.
Orthostasis, transient on 12/20 with PT
- will monitor off BP meds. Patient agreeable
hx of Parox A Fib
Hx of CAD s/p PCI
Mild MR
- continue Eliquis
- continue ASA
- holding Coreg/Lisinopril
GERD
- PPI
HLD
- statin/Zetia
OA
Arthritis
- pain control
- PT/OT
DVT ppx: Eliquis
Code: Full
Dispo: to SNF when stable and bed available
Anticipated Discharge: > 48 hours
Subjective/Interval History
-
Date of Service: December 22, 2024
resting comfortably
no complaints
Objective Data
-
Vital Signs:
Vital Signs
Temp Pulse Resp BP Pulse Ox
97.5 F 73 16 117/82 96
12/22/24 11:17 12/22/24 11:17 12/22/24 11:17 12/22/24 11:17 12/22/24 11:17
I&O
12/21/24 12/22/24 12/23/24
06:59 06:59 06:59
Intake Total 1280 / 1280 1080 / 1080
Output Total 375 / 375 700 / 700
Balance 905 / 905 380 / 380
Physical Exam
-
General: No Apparent Distress
HEENT: Normocephalic and Atraumatic
Respiratory: Negative Wheezes
Cardiac: Regular Rhythm and S1/S2
GI: Soft and Nontender
Musculoskeletal: No Edema
Neuro: AO x 3
Psych: Calm
Data Reviewed
-
Total Time Spent with Patient (in minutes): 45
Labs: Labs Reviewed by me
[2024-12-22] MEDS: ASPIR LOW (ENTERIC COATED) 81 MG PO (21:08)
[2024-12-22] MEDS: ZETIA 10 MG PO (21:08)
[2024-12-23 03:10] VITALS: BP 104/63
[2024-12-23 07:50] VITALS: BP 126/86
[2024-12-23] MEDS: PROTONIX 40 MG PO (08:50)
[2024-12-23] MEDS: ELIQUIS 5 MG PO ×2 (08:50→20:05)
[2024-12-23] MEDS: TYLENOL 650 MG PO ×2 (08:55→20:04)
--- NOTE | 2024-12-23 10:45 | W.PN.HOSP.TC ---
Today's Communication/Plan
-
DC to SNF tomorrow per CM
Assessment / Plan
Assessment / Plan
Assessment:
L Achilles tendon rupture
- s/p tendon repair 12/19/24 (Podiatry. Dr. Scales)
- pain control
- NWB to LLE
- follow Podiatry recs
- PT/OT - Acute rehab recommended but denied. SNF planned Thursday. CM aware.
Orthostasis, transient on 12/20 with PT
- will monitor off BP meds. Patient agreeable.
hx of Parox A Fib
Hx of CAD s/p PCI
Mild MR
- continue Eliquis
- continue ASA
- holding Coreg/Lisinopril as above
GERD
- PPI
HLD
- statin/Zetia
OA
Arthritis
- pain control
- PT/OT
DVT ppx: Eliquis
Code: Full
Dispo: to SNF when stable and bed available. Likely in 24 hours.
Anticipated Discharge: Within 24 hours
Subjective/Interval History
-
Date of Service: December 23, 2024
resting comfortably, no complaints at present
Objective Data
-
Vital Signs:
Vital Signs
Temp Pulse Resp BP Pulse Ox
97.7 F 66 18 126/86 96
12/23/24 07:50 12/23/24 07:50 12/23/24 07:50 12/23/24 07:50 12/23/24 07:50
I&O
12/22/24 12/23/24 12/24/24
06:59 06:59 06:59
Intake Total 1080 / 1080 1377 / 1377
Output Total 700 / 700 1225 / 1225
Balance 380 / 380 152 / 152
Physical Exam
-
General: No Apparent Distress
HEENT: Normocephalic and Atraumatic
Respiratory: Negative Wheezes
Cardiac: Regular Rhythm and S1/S2
GI: Soft and Nontender
Musculoskeletal: Other (splint in place)
Neuro: AO x 3
Psych: Calm
Data Reviewed
-
Total Time Spent with Patient (in minutes): 42
Labs: Labs Reviewed by me
--- NOTE | 2024-12-23 13:11 | CM ---
Addendum entered by Sylvia Mulligan 12/23/24 16:27:
Transport at 1200 tomorrow. Pt given acute care number to call for payment
Addendum entered by Sylvia Mullgian 12/23/24 15:19:
Pt updated plan to transfer to [facility]. Requested WC Van
Given IMM
Plan - transfer to [email or web address] tomorrow
R - [phone]
- [phone]
Original Note:
Chart reviewed
Spoke with Danielito [facility] at [email or web address] - can accept for tomorrow
Call [facility] [facility] in AM to confirm transport time - [phone] - ask to speak with house furnishings supervisor
Team updated
Plan - transfer to [facility] tomorrow
R - [phone]
- [phone]
[2024-12-23 14:19] VITALS: BP 116/73; PULSE 79
[2024-12-23 15:10] VITALS: BP 115/69
[2024-12-23] MEDS: ZETIA 10 MG PO (21:06)
[2024-12-23] MEDS: ASPIR LOW (ENTERIC COATED) 81 MG PO (21:06)
[2024-12-23 23:11] VITALS: BP 109/68
[2024-12-24 07:26] VITALS: BP 116/79
[2024-12-24] MEDS: PROTONIX 40 MG PO (08:05)
[2024-12-24] MEDS: TYLENOL 650 MG PO (08:05)
[2024-12-24] MEDS: ELIQUIS 5 MG PO (08:05)
--- NOTE | 2024-12-24 11:25 | W.PN.HOSP.TC ---
Today's Communication/Plan
-
dc to SNF
Assessment / Plan
Assessment / Plan
Assessment:
L Achilles tendon rupture
- s/p tendon repair 12/19/24 (Podiatry. Dr. Scales)
- pain control
- NWB to LLE
- follow Podiatry recs
- PT/OT - Acute rehab recommended but denied. SNF dc today.
Orthostasis, transient on 12/20 with PT
- will monitor off BP meds. Patient agreeable.
hx of Parox A Fib
Hx of CAD s/p PCI
Mild MR
- continue Eliquis
- continue ASA
- holding Coreg/Lisinopril as above
GERD
- PPI
HLD
- statin/Zetia
OA
Arthritis
- pain control
- PT/OT
DVT ppx: Eliquis
Code: Full
More than 30 minutes spent in discharge including
Final examination of the patient
Summarizing hospital stay
Instructions for continuing care to all relevant caregivers
Preparation of discharge records, prescriptions, and referral forms
Total time spent (in minutes): 41
Anticipated Discharge: Today
Subjective/Interval History
-
Date of Service: December 24, 2024
resting comfortably, no complaints
Objective Data
-
Vital Signs:
Vital Signs
Temp Pulse Resp BP Pulse Ox
97.8 F 73 16 116/79 94
12/24/24 07:26 12/24/24 07:26 12/24/24 07:26 12/24/24 07:26 12/24/24 07:26
I&O
12/23/24 12/24/24 12/25/24
06:59 06:59 06:59
Intake Total 1377 / 1377 1020 / 1020
Output Total 1225 / 1225 200 / 200
Balance 152 / 152 820 / 820
Physical Exam
-
General: No Apparent Distress
HEENT: Normocephalic and Atraumatic
Respiratory: Negative Wheezes
Cardiac: Regular Rhythm and S1/S2
GI: Soft and Nontender
Genito-urinary: No Costovertebral Tender
Neuro: AO x 3
Psych: Calm
Data Reviewed
-
Total Time Spent with Patient (in minutes): 41
Labs: Labs Reviewed by me
[2024-12-24 11:37] VITALS: BP 116/79
--- NOTE | 2024-12-24 11:38 | W.DS.TRANS ---
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
-
Discharge Instructions:
Sleep Apnea Risk Low
Discharge Diagnosis/Procedures L Achilles tendon rupture
- s/p tendon repair 12/19/24
Diet Regular
Activity As tolerated
Additional Activity NWB to LLE
Instructions:
Stand-Alone Forms:
Changes to Home Medications: No
Discharge Medications:
DC Medications w/original date entered in [employer]
lisinopril 5 mg tablet 5 mg PO HS 01/12/18
omeprazole 20 mg capsule,delayed release 20 mg PO DAILY 01/12/18
carvedilol 3.125 mg tablet 3.125 mg PO BID 30 days ##60 01/17/18
apixaban 5 mg tablet (Eliquis) 5 mg PO BID ##0 04/01/21
aspirin 81 mg tablet,delayed release (Adult Aspirin Regimen) 81 mg PO HS 04/01/21
ezetimibe 10 mg tablet (Zetia) 10 mg PO HS 11/18/23
rosuvastatin 10 mg tablet (Crestor) 10 mg PO MOWEFR 11/18/23
acetaminophen 325 mg tablet 650 mg (2 x 325 mg) PO Q4HPRN PRN mild pain/ENCARNACION/temp> 100.4F #100 tabs 12/24/24
Home Medication Changes
Pending Results: No
Total time spent discharging patient (in min): 41
== END 2024-12-24 12:10 | DRG 502 ==
LOC: 2 SOUTH 08:55
PROVIDERS: Student in an Organized Health Care Education/Training Program; ADMITTING PHYSICIAN Internal Medicine; OTHER PHYSICIAN Physical Medicine & Rehabilitation
PROC: 0LQP0ZZ Repair Left Lower Leg Tendon, Open Approach (ICD-10-PCS; 2024-12-19)
DX: S86.012A Strain of left Achilles tendon, initial encounter (principal); K21.9 Gastro-esophageal reflux disease without esophagitis; E78.5 Hyperlipidemia, unspecified; I25.10 Atherosclerotic heart disease of native coronary artery without angina pectoris; Z98.61 Coronary angioplasty status; M19.90 Unspecified osteoarthritis, unspecified site; I48.0 Paroxysmal atrial fibrillation; Z95.0 Presence of cardiac pacemaker; Z79.01 Long term (current) use of anticoagulants; Z79.82 Long term (current) use of aspirin; Z88.5 Allergy status to narcotic agent; X50.0XXA Overexertion from strenuous movement or load, initial encounter; I95.1 Orthostatic hypotension
CPT/HCPCS: 80048; 80053; 85027; 93005; 97163; 97167; 97530; 97535; C1776

== ENCOUNTER → 2024-12-28 12:07 | Outpatient (REF) | payer OTHER, MEDICARE, SELFPAY ==
[2024-12-28 13:08] LABS: Hematocrit 42.1 % (39.0-52.0); Mean Corp Hgb Conc. 33.3 g/dL (33.0-37.0); Mean Corpuscular Hgb 31.8 pg (27.0-31.0); Mean Corpuscular Volume 95.7 fL (80.0-94.0); Mean Platelet Volume 12.7 fL (7.4-10.4); Platelet Count 127 10^3/uL (130-400); Red Cell Dist. Width 14.1 % (11.5-14.5); White Blood Cell Count 4.7 10^3/uL (4.8-10.8)
[2024-12-28 14:19] LABS: ALT (SGPT) 32 U/L (0-50); AST (SGOT) 26 U/L (17-59); Albumin 3.4 g/dl (3.5-5.0); Alkaline Phosphatase 70 U/L (38-126); Blood Urea Nitrogen 15 mg/dl (9-20); Carbon Dioxide 23 mmol/L (22-30); Chloride 107 mmol/L (98-107); Glucose 92 mg/dl (70-99); Potassium 4.1 mmol/L (3.5-5.1); Sodium 137 mmol/L (135-145); Total Bilirubin 0.9 mg/dl (0.2-1.3); eGFR > 60.00
== END ==
LOC: OLABP 12:07
PROVIDERS: ATTENDING PHYSICIAN Family Medicine
DX: Z47.89 Encounter for other orthopedic aftercare (principal); M76.62 Achilles tendinitis, left leg; I95.1 Orthostatic hypotension; K21.9 Gastro-esophageal reflux disease without esophagitis; E78.5 Hyperlipidemia, unspecified; I48.0 Paroxysmal atrial fibrillation; Z95.0 Presence of cardiac pacemaker
CPT/HCPCS: 36415; 80053; 85027

== ENCOUNTER 2025-03-10 08:50 | Outpatient (RCR) | payer MEDICARE, OTHER, SELFPAY | END 2025-03-10 23:59 | disposition home or self-care (01) | LOC: RPT 08:50 | PROVIDERS: ATTENDING PHYSICIAN Student in an Organized Health Care Education/Training Program; FAMILY PHYSICIAN Internal Medicine | DX: S86.012D Strain of left Achilles tendon, subsequent encounter (principal); Z47.89 Encounter for other orthopedic aftercare (principal); M54.51 Vertebrogenic low back pain; Z73.6 Limitation of activities due to disability; R26.2 Difficulty in walking, not elsewhere classified; M62.81 Muscle weakness (generalized); G89.29 Other chronic pain | CPT/HCPCS: 97010; 97110; 97112; 97162 ==

== ENCOUNTER → 2025-03-28 11:43 | Outpatient (REF) | payer MEDICARE, OTHER, SELFPAY ==
[2025-03-30 20:26] LABS: 24 Hour Urine Total Volume Random mL; Urine Collection Length Random hr; Urine Free Kappa Light Chains 4.06 mg/L (0.00-32.90); Urine Free Lambda Light Chains 0.87 mg/L (0.00-3.79)
[2025-03-30 21:45] LABS: Albumin 3.76 g/dL (3.75-5.01); Alpha 1 Globulin 0.27 g/dL (0.19-0.46); Free Kappa Light Chains,Quant 9.35 mg/L (3.30-19.40); Free Lambda Light Chains,Quant 7.69 mg/L (5.71-26.30); IgA 48 mg/dL (68-408); IgG 1468 mg/dL (768-1632); IgM 20 mg/dL (35-263); Immunofixation Electrophoresis IFE Done; Kappa/Lambda Fr Light Ratio 1.22 (0.26-1.65); Monoclonal Protein 1.15 g/dL (<=0.00); Total Protein-Electrophoresis 6.7 g/dL (6.3-8.2)
== END ==
LOC: REG 11:43
PROVIDERS: ATTENDING PHYSICIAN Internal Medicine Cardiovascular Disease
DX: I51.7 Cardiomegaly (principal)
CPT/HCPCS: 36415; 82784; 83520; 83521; 84155; 84156; 84165; 86334; 86335

== ENCOUNTER 2025-04-05 09:22 | Outpatient (RCR) | payer MEDICARE, OTHER, SELFPAY | END 2025-04-05 23:59 | disposition home or self-care (01) | LOC: RPT 09:22 | PROVIDERS: ATTENDING PHYSICIAN Student in an Organized Health Care Education/Training Program; FAMILY PHYSICIAN Internal Medicine | DX: Z47.89 Encounter for other orthopedic aftercare (principal); S86.012D Strain of left Achilles tendon, subsequent encounter; X58.XXXD Exposure to other specified factors, subsequent encounter; M54.51 Vertebrogenic low back pain; Z73.6 Limitation of activities due to disability; R26.2 Difficulty in walking, not elsewhere classified; M62.81 Muscle weakness (generalized); G89.29 Other chronic pain | CPT/HCPCS: 97010; 97110; 97112 ==

== ENCOUNTER → 2025-04-17 07:31 | Outpatient (REF) | payer MEDICARE, OTHER, SELFPAY | LOC: MRI 07:31 | PROVIDERS: ATTENDING PHYSICIAN Internal Medicine | DX: M54.9 Dorsalgia, unspecified (principal) | CPT/HCPCS: 72148 ==

== ENCOUNTER 2025-05-05 09:55 | Outpatient (RCR) | payer MEDICARE, OTHER, SELFPAY | END 2025-05-05 23:59 | disposition home or self-care (01) | LOC: RPT 09:55 | PROVIDERS: ATTENDING PHYSICIAN Internal Medicine | DX: M54.51 Vertebrogenic low back pain; S86.012D Strain of left Achilles tendon, subsequent encounter; X58.XXXD Exposure to other specified factors, subsequent encounter; Z47.89 Encounter for other orthopedic aftercare; Z73.6 Limitation of activities due to disability; R26.2 Difficulty in walking, not elsewhere classified; M62.81 Muscle weakness (generalized); G89.29 Other chronic pain; M43.16 Spondylolisthesis, lumbar region | CPT/HCPCS: 97010; 97110; 97112 ==

== ENCOUNTER → 2025-05-22 14:35 | Outpatient (REF) | payer MEDICARE, OTHER, SELFPAY | LOC: HWRAD 14:35 | PROVIDERS: ATTENDING PHYSICIAN Nurse Practitioner Acute Care; FAMILY PHYSICIAN Internal Medicine; REFERRING PHYSICIAN Neurological Surgery | DX: M54.50 Low back pain, unspecified (principal); M48.061 Spinal stenosis, lumbar region without neurogenic claudication | CPT/HCPCS: 72110; 72131 ==

== ENCOUNTER → 2025-05-23 10:34 | Outpatient (REF) | payer MEDICARE, OTHER, SELFPAY | LOC: RAD 10:34 | PROVIDERS: ATTENDING PHYSICIAN Internal Medicine Cardiovascular Disease; FAMILY PHYSICIAN Internal Medicine; REFERRING PHYSICIAN Internal Medicine Cardiovascular Disease | DX: E85.4 Organ-limited amyloidosis (principal) | CPT/HCPCS: 78803; A9538 ==

== ENCOUNTER → 2025-05-27 08:22 | Outpatient (REF) | payer MEDICARE, OTHER, SELFPAY ==
[2025-05-27 09:29] LABS: Hematocrit 41.9 % (39.0-52.0); Hemoglobin 13.7 g/dL (13.0-18.0); Mean Corp Hgb Conc. 32.7 g/dL (33.0-37.0); Mean Corpuscular Volume 95.4 fL (80.0-94.0); Nucleated Red Blood Cells % 0 % (-); Platelet Count 117 10^3/uL (130-400); Red Cell Dist. Width 14.1 % (11.5-14.5)
[2025-05-27 09:48] LABS: Blood Urea Nitrogen 17 mg/dl (9-20); Calcium 8.9 mg/dl (8.4-10.2); Carbon Dioxide 24 mmol/L (22-30); Chloride 109 mmol/L (98-107); Glucose 106 mg/dl (70-99); HDL Cholesterol 44 mg/dl; LDL Cholesterol, Calculated 57 mg/dl; Potassium 4.5 mmol/L (3.5-5.1); Sodium 140 mmol/L (135-145); Very Low Density Lipoprotein 11 mg/dl (0-30); eGFR > 60.00
== END ==
LOC: REG 08:22
PROVIDERS: ATTENDING PHYSICIAN Internal Medicine Cardiovascular Disease; FAMILY PHYSICIAN Internal Medicine; REFERRING PHYSICIAN Surgery Vascular Surgery
DX: I51.7 Cardiomegaly (principal); I72.3 Aneurysm of iliac artery; I48.0 Paroxysmal atrial fibrillation
CPT/HCPCS: 36415; 80048; 80061; 85025

== ENCOUNTER 2025-05-29 10:10 | Day surgery (SDC) | payer MEDICARE, OTHER, SELFPAY ==
[2025-05-29 10:24] VITALS: BMI 30.4
[2025-05-29 11:10] VITALS: BP 133/77
[2025-05-29 11:13] VITALS: BP 137/77
[2025-05-29 11:33] LABS: Hematocrit 40.6 % (39.0-52.0); Hemoglobin 13.3 g/dL (13.0-18.0); Mean Corp Hgb Conc. 32.8 g/dL (33.0-37.0); Mean Corpuscular Volume 96.2 fL (80.0-94.0); Nucleated Red Blood Cells % 0 % (-); Platelet Count 105 10^3/uL (130-400); Red Cell Dist. Width 14.2 % (11.5-14.5)
[2025-05-29 11:38] LABS: Blood Urea Nitrogen 16 mg/dl (9-20); Calcium 8.3 mg/dl (8.4-10.2); Carbon Dioxide 26 mmol/L (22-30); Chloride 109 mmol/L (98-107); Estimated Creatinine Clearance 112 ml/min; Glucose 99 mg/dl (70-99); Potassium 4.2 mmol/L (3.5-5.1); Sodium 139 mmol/L (135-145); eGFR > 60.00
[2025-05-29 13:03] VITALS: BP 123/82
[2025-05-29 13:15] VITALS: BP 120/76
[2025-05-29 13:28] VITALS: BP 119/70
== END 2025-05-29 13:55 | disposition home or self-care (01) ==
LOC: CATH 10:10
PROVIDERS: ATTENDING PHYSICIAN Internal Medicine Cardiovascular Disease; FAMILY PHYSICIAN Internal Medicine
DX: Z45.010 Encounter for checking and testing of cardiac pacemaker pulse generator [battery] (principal); I49.5 Sick sinus syndrome; I44.2 Atrioventricular block, complete; I25.10 Atherosclerotic heart disease of native coronary artery without angina pectoris; Z79.01 Long term (current) use of anticoagulants; Z79.82 Long term (current) use of aspirin; I48.0 Paroxysmal atrial fibrillation
CPT/HCPCS: 33228; 80048; 85025; C1785

== ENCOUNTER → 2025-05-30 11:42 | Outpatient (REF) | payer MEDICARE, OTHER, SELFPAY | LOC: RAD 11:42 | PROVIDERS: ATTENDING PHYSICIAN Surgery Vascular Surgery; FAMILY PHYSICIAN Internal Medicine | DX: I72.3 Aneurysm of iliac artery (principal) | CPT/HCPCS: 74174; Q9967 ==

== ENCOUNTER 2025-06-09 09:57 | Outpatient (RCR) | payer MEDICARE, OTHER, SELFPAY | END 2025-06-09 23:59 | disposition home or self-care (01) | LOC: RPT 09:57 | PROVIDERS: ATTENDING PHYSICIAN Internal Medicine | DX: Z47.89 Encounter for other orthopedic aftercare (principal); S86.012D Strain of left Achilles tendon, subsequent encounter; M54.51 Vertebrogenic low back pain; Z73.6 Limitation of activities due to disability; R26.2 Difficulty in walking, not elsewhere classified; M62.81 Muscle weakness (generalized); M43.16 Spondylolisthesis, lumbar region; G89.29 Other chronic pain; X58.XXXD Exposure to other specified factors, subsequent encounter | CPT/HCPCS: 97010; 97110; 97112 ==

== ENCOUNTER → 2025-06-19 09:53 | Outpatient (REF) | payer MEDICARE, OTHER, SELFPAY | LOC: RCS 09:53 | PROVIDERS: ATTENDING PHYSICIAN Internal Medicine Cardiovascular Disease; FAMILY PHYSICIAN Internal Medicine | DX: I25.10 Atherosclerotic heart disease of native coronary artery without angina pectoris (principal) | CPT/HCPCS: 93306 ==

== ENCOUNTER 2025-07-07 11:11 | Outpatient (RCR) | payer MEDICARE, OTHER, SELFPAY | END 2025-07-07 23:59 | disposition home or self-care (01) | LOC: RPT 11:11 | PROVIDERS: ATTENDING PHYSICIAN Internal Medicine | DX: Z47.89 Encounter for other orthopedic aftercare (principal); S86.012D Strain of left Achilles tendon, subsequent encounter; M54.51 Vertebrogenic low back pain; Z73.6 Limitation of activities due to disability; R26.2 Difficulty in walking, not elsewhere classified; M62.81 Muscle weakness (generalized); M43.16 Spondylolisthesis, lumbar region; G89.29 Other chronic pain; X58.XXXD Exposure to other specified factors, subsequent encounter | CPT/HCPCS: 97010; 97110; 97112 ==

== ENCOUNTER → 2025-07-17 09:35 | Outpatient (REF) | payer MEDICARE, OTHER, SELFPAY ==
[2025-07-17 10:56] LABS: Hematocrit 44.8 % (39.0-52.0); Hemoglobin 14.6 g/dL (13.0-18.0); Mean Corp Hgb Conc. 32.6 g/dL (33.0-37.0); Mean Corpuscular Volume 97.8 fL (80.0-94.0); Nucleated Red Blood Cells % 0 % (-); Platelet Count 155 10^3/uL (130-400); Red Cell Dist. Width 14.4 % (11.5-14.5)
[2025-07-17 11:28] LABS: ALT (SGPT) 18 U/L (0-50); AST (SGOT) 21 U/L (17-59); Albumin 3.8 g/dl (3.5-5.0); Alkaline Phosphatase 57 U/L (38-126); Blood Urea Nitrogen 16 mg/dl (9-20); Calcium 9.2 mg/dl (8.4-10.2); Carbon Dioxide 29 mmol/L (22-30); Chloride 107 mmol/L (98-107); Glucose 101 mg/dl (70-99); Potassium 4.8 mmol/L (3.5-5.1); Sodium 141 mmol/L (135-145); Total Protein 6.6 g/dl (6.3-8.2); eGFR > 60.00
[2025-07-18 16:03] LABS: Folate 4.3 ng/ml (2.76-20); Vitamin B12 278 pg/ml (239-931)
== END ==
LOC: REG 09:35
PROVIDERS: ATTENDING PHYSICIAN Nurse Practitioner Adult Health; FAMILY PHYSICIAN Internal Medicine; REFERRING PHYSICIAN Internal Medicine Cardiovascular Disease
DX: I25.10 Atherosclerotic heart disease of native coronary artery without angina pectoris (principal); E78.00 Pure hypercholesterolemia, unspecified; D69.6 Thrombocytopenia, unspecified; R42 Dizziness and giddiness
CPT/HCPCS: 36415; 80053; 82607; 82746; 84443; 85025

== ENCOUNTER 2025-08-04 08:28 | Outpatient (RCR) | payer MEDICARE, OTHER, SELFPAY | END 2025-08-04 23:59 | disposition home or self-care (01) | LOC: RPT 08:28 | PROVIDERS: ATTENDING PHYSICIAN Internal Medicine | DX: Z47.89 Encounter for other orthopedic aftercare (principal); S86.012D Strain of left Achilles tendon, subsequent encounter; M54.51 Vertebrogenic low back pain; Z73.6 Limitation of activities due to disability; R26.2 Difficulty in walking, not elsewhere classified; M62.81 Muscle weakness (generalized); M43.16 Spondylolisthesis, lumbar region; G89.29 Other chronic pain; X58.XXXD Exposure to other specified factors, subsequent encounter | CPT/HCPCS: 97010; 97110; 97112 ==

== ENCOUNTER 2025-09-06 06:37 | Outpatient (RCR) | payer MEDICARE, OTHER, SELFPAY | END 2025-09-06 23:59 | disposition home or self-care (01) | LOC: RPT 06:37 | PROVIDERS: ATTENDING PHYSICIAN Internal Medicine | DX: Z47.89 Encounter for other orthopedic aftercare (principal); S86.012D Strain of left Achilles tendon, subsequent encounter; M54.51 Vertebrogenic low back pain; Z73.6 Limitation of activities due to disability; R26.2 Difficulty in walking, not elsewhere classified; M62.81 Muscle weakness (generalized); M43.16 Spondylolisthesis, lumbar region; G89.29 Other chronic pain; X58.XXXD Exposure to other specified factors, subsequent encounter | CPT/HCPCS: 97010; 97110; 97112 ==

== ENCOUNTER → 2025-09-11 07:35 | Outpatient (REF) | payer MEDICARE, OTHER, SELFPAY | LOC: MRI 07:35 | PROVIDERS: ATTENDING PHYSICIAN Psychiatry & Neurology Neurology; FAMILY PHYSICIAN Internal Medicine | DX: M54.12 Radiculopathy, cervical region (principal); M54.14 Radiculopathy, thoracic region; R42 Dizziness and giddiness; R26.9 Unspecified abnormalities of gait and mobility | CPT/HCPCS: 70551; 72141; 72146 ==

== ENCOUNTER 2025-10-04 23:18 | Emergency (ER) | payer MEDICARE, OTHER, SELFPAY ==
[2025-10-04 23:20] VITALS: BP 129/84
[2025-10-05] VITALS: BP 104/64
[2025-10-05 00:38] VITALS: BP 112/64
[2025-10-05 00:40] VITALS: BP 119/81
[2025-10-05 00:42] VITALS: BP 104/64
[2025-10-05 00:46] VITALS: BP 104/64; BP 112/64; BP 119/81; PULSE 100; PULSE 78; PULSE 96
--- NOTE | 2025-10-05 01:03 | ED.GENMED ---
History of Present Illness
General
Chief Complaint: Fainting Sensation
Time Seen by Provider: 10/05/25 00:24
History of Present Illness
History of Present Illness:
Patient is a 80-year-old male with history of A-fib on Eliquis, hypertension, hyperlipidemia, pacemaker presenting to the emergency department with near syncope. Patient states that 3 days ago he was working on a garage when while up and thought he
could see nystagmus. He then fell hitting his head. He has been holding his Eliquis for an orthopedic procedure so he did not come to the emergency department for evaluation. Today he was sitting in the bathroom about to stand up when he moved
his head up and then developed the same room spinning sensation. He slowly sat down. He did not lose consciousness. He did not hit his head. He did develop a large skin tear to the right side. He denies any palpitations chest pain difficulty
breathing. No numbness tingling. No weakness. He does not feel dehydrated. He does not get the symptoms with movement. It is only positional especially when he looks up. His last tetanus was within 5 years. He did have an MRI of his head 2
weeks ago which was unremarkable.
Past History
Past History
ED Past Medical History: Arrthythmia (Atrial fibrillation), CAD, HTN and Other (Osteoarthritis)
ED Past Surgical History: Cardiac (Pacemaker), Cholecystectomy and Orthopedic
Social History
Tobacco: Non-smoker
Employment: Employed
Phy Exam
Physical Exam
Physical Exam:
GENERAL: in no acute distress
HEENT: normocephalic, extraocular movements intact, moist oral mucosa, scabbed wound to the left head
NECK: normal inspection
RESPIRATORY: no respiratory distress, clear to auscultation bilaterally
CARDIOVASCULAR: regular rate and rhythm
ABDOMEN/: soft, non-distended, non-tender to palpation, no rebound or guarding
EXTREMITIES: non-tender, no edema/swelling, large skin tear to the right forearm
NEUROLOGIC: alert and oriented x 3, cranial nerves II-XII intact, right upper extremity strength 5/5, left upper extremity strength 5/5, right lower extremity strength 5/5, left lower extremity strength 5/5, normal sensation to light touch, normal
[id number] and [id number], gait not tested formally
SKIN: warm
Course
Orders/Labs/Results
Orders:
Orders
10/04/25 23:27
EKG [Electrocardiogram (*1)] Urgent
Reason for Study: Syncope
10/04/25 23:28
EKG- Treatment ONCE
10/05/25 00:46
Interrogate Pacemaker- Treatment ONCE
Orthostatic VS- Treatment ONCE
Vital Signs
Initial and Last Documented VS:
Initial Vital Signs
Temp Pulse Resp BP Pulse Ox
97.9 F 75 18 129/84 97
10/04/25 23:20 10/04/25 23:20 10/04/25 23:20 10/04/25 23:20 10/04/25 23:20
Last Documented Vital Signs
Temp Pulse Resp BP Pulse Ox
97.9 F 75 17 104/64 97
10/04/25 23:20 10/05/25 01:00 10/05/25 01:00 10/05/25 00:42 10/05/25 01:08
MDM/Problems Addressed
Differential Diagnosis Includes:
Patient is a 80-year-old man presenting to the emergency department with dizziness especially when tilting his head up. On arrival vitals unremarkable and exam is reassuring. Likely peripheral vertigo especially with the room spinning sensation
only when he moves his head up. However could be a component of orthostasis as well. Consider cardiac etiology though less likely. Will interrogate pacemaker. Will obtain orthostatic vital signs. Will also trial the Renan maneuver/meclizine. I
did offer patient CT scan given the fall a few days ago and the dizziness however patient declined. He does not have any neurodeficits which is reassuring. I did offer patient blood work as well though patient declined given that he is
asymptomatic at this time.
*Pulse Oximetry
SaO2: 97
Oxygen Mode of Delivery: Room air
Patient hypoxic: no
*Critical Care Note
Total Time (30-74mins, 75-104mins- exclusive of procedures): Not Applicable
Update Note
Update Note:
Pacemaker interrogation negative for any acute abnormalities. Patient completed the Renan maneuver with success. Patient advised to use these exercises at home. In case the Renan maneuver does not work we will discharge with meclizine as well
ED Attending Note
-
Portions of this chart may have been created with voice recognition software.� Occasional wrong word or��sound alike� substitutions may have occurred due to the inherent limitations of voice recognition software.
Discharge Plan
Departure
Patient Disposition: Home (Routine Discharge)
Date of Disposition: 10/05/25
Time of Disposition: 01:49
Patient with high blood pressure during this ER visit?: No
Discharge Problem:
Benign paroxysmal positional vertigo
Instructions: Exercises (maneuvers) for benign paroxysmal positional vertigo, Vertigo - ED (DC)
Prescriptions:
New
meclizine 12.5 mg tablet
12.5 mg PO TID PRN (Reason: dizziness) Qty: 14 0RF
No Action
omeprazole 20 MG capsule,delayed release(DR/EC)
20 mg PO DAILY
lisinopril 5 MG tablet
5 mg PO HS
carvedilol 3.125 MG tablet
3.125 mg PO BID 30 Days Qty: 60 12RF
aspirin [Adult Aspirin Regimen] 81 MG tablet,delayed release (DR/EC)
81 mg PO HS
Eliquis 5 MG tablet
5 mg PO BID Qty: 0 0RF
ezetimibe [Zetia] 10 mg Tablet
10 mg PO HS
rosuvastatin [Crestor] 10 mg Tablet
10 mg PO MOWEFR
acetaminophen 325 mg Tablet
650 mg PO Q4HPRN PRN (Reason: mild pain/ENCARNACION/temp> 100.4F) Qty: 100 0RF
naproxen 250 mg Tablet
250 mg PO Q12
Referrals:
Donnie Jj I., [Family Provider, Internal Medicine]
Activity Restrictions/Additional Instructions:
Thank You for choosing [facility].
It was a pleasure meeting you and taking part in your care.
You were seen in the Emergency Department today for dizziness. While you were here we performed an EKG and interrogated your pacemaker, which was reassuring. Please continue to use the Renan maneuver as needed. I also prescribed you meclizine if
the maneuver does not work.
We would like for you to follow up with your primary care physician for further evaluation. If you experience fever, worsening of your symptoms, or develop any other new or concerning symptoms, please return to the Emergency Department immediately.
Please see the attached sheet for additional information.
Interventions
Interventions:
[facility] Risk Assessment Tool Last Done: 10/04/25 23:28
*Risk Screen - Suicide (C-SSRS) Last Done: 10/04/25 23:20
ED- Cardiac Assessment Last Done: 10/05/25 01:14
ED- Neurological Assessment Last Done: 10/05/25 01:14
Discharge Date and Time
Print Language: PERUVIAN
[2025-10-05 02:00] VITALS: BP 104/76
== END 2025-10-05 02:15 | disposition home or self-care (01) ==
LOC: EMR 23:18
PROVIDERS: EMERGENCY PHYSICIAN Student in an Organized Health Care Education/Training Program; FAMILY PHYSICIAN Internal Medicine
DX: H81.10 Benign paroxysmal vertigo, unspecified ear (principal); I10 Essential (primary) hypertension; E78.00 Pure hypercholesterolemia, unspecified; I48.91 Unspecified atrial fibrillation; I25.10 Atherosclerotic heart disease of native coronary artery without angina pectoris; M19.90 Unspecified osteoarthritis, unspecified site; Z79.01 Long term (current) use of anticoagulants; Z90.49 Acquired absence of other specified parts of digestive tract; Z95.0 Presence of cardiac pacemaker
CPT/HCPCS: 99283; 93005